=== PATIENT | male | born 1995 | race Asian ===

== ENCOUNTER 2017-02-20 09:16 | Emergency (ER) | payer SELFPAY ==
[~2017-02-20] VITALS: Ht 154.9 cm; Wt 62.3 kg
[2017-02-20 09:20] VITALS: TEMP 37; Ht 154.9 cm; Wt 62.3 kg
[2017-02-20] MEDS ORDERED: ONDANSETRON INJ 2 MG/ML 2 ML VIAL IV STA (09:33)
[2017-02-20] MEDS ORDERED: PIPERACILLIN/TAZOBACTAM 4.5 GM/100ML D5W IV STA (09:33)
[2017-02-20] MEDS ORDERED: MoRPHine SULFATE 4 MG/ML 1 ML CARP\\VIAL IV PRN (09:45)
[2017-02-20 10:00] LABS: BASO % 0.1 %; BASO ABS # 0.02 K/uL (0-0.2); COMPLETE YES; EOS % 0.3 %; HEMATOCRIT 42.7 % (42-52); IG% 0.3 %; LYMPH % 7.9 %; LYMPH ABS # 1.35 K/uL (1.2-3.4); MEAN CELL VOLUME 84.2 fL (80-100); MEAN CORPUSCULAR HEMOGLOBIN 29.8 pg (25-34); MEAN CORPUSCULAR HGB CONC 35.4 g/dl (32-36); MEAN PLATELET VOLUME 10.4 fL (7.4-10.4); MONO % 9.5 %; NEUT % 81.9 %; PLATELET COUNT 262 K/uL (130-400); RED BLOOD COUNT 5.07 M/uL (4.7-6.1); WHITE BLOOD COUNT 17.01 K/uL (4.8-10.8)
--- NOTE | 2017-02-20 10:04 | EMERGENCY ROOM VISIT NOTE ---
History Report prepared by Lauro: Camron Adnersen Under the Supervision of: Dr. Homero Jameson D.O. First contact with patient: 09:25 Chief Complaint: WOUND INFECTION Stated Complaint: RECTAL ABSCESS Nursing Triage Summary: perirectal abcess x1 week, sent by [facility]. History of Present Illness The patient is a 21 year old male who presents to the Emergency Room with complaints of a rectal abscess that began 5 days ago. The day before, he began to have some mild rectal pain, but did not notice the abscess until the day after. His symptoms have worsened significantly since then. He has been experiencing a fever with chills. He denies any abdominal pain. This has never happened to him before. He denies any known medication allergies. He does not take any medications daily. However, he has been taking Ibuprofen for his pain. Source of History: patient Onset: 5 days ago Position: other (Rectal) Symptom Intensity: moderate Quality: sharp Timing: constant Associated Symptoms: + fevers, + chills, No abdominal pain Review of Systems See HPI for pertinent positives & negatives. A total of 10 systems reviewed and were otherwise negative. Past Medical & Surgical Medical Problems: (1) No Known Active Medical Problems Family History Patient reports no known family medical history. Social History Smoking Status: Never Smoker Smokeless Tobacco Use: No Drug Use: none Marital Status: single Occupation Status: student Current/Historical Medications Scheduled Amoxicillin & Pot Clavulanate (Augmentin 875-125 mg), 875 MG PO BID Polyethylene Glycol 3350 (Miralax), 17 GM PO DAILY Allergies Coded Allergies: No Known Allergies (Unverified , 02/22/17) Physical Exam Vital Signs Date Time Temp Pulse Resp B/P (MAP) Pulse Ox O2 Delivery O2 Flow Rate FiO2 02/20/17 11:34 104 18 107/72 95 Room Air 02/20/17 09:20 37.0 126 18 115/75 94 Room Air Physical Exam GENERAL: Patient is awake, alert, and in no acute distress. Patient is uncomfortable and anxious appearing. EYES: The conjunctivae are clear. The pupils are round and reactive. EARS, NOSE, MOUTH AND THROAT: The nose is without any evidence of any deformity. Mucous membranes are moist tongue is midline NECK: The neck is nontender and supple. RESPIRATORY: Normal respiratory effort is noted there is no evidence of wheezing rhonchi or rales CARDIOVASCULAR: Regular rate and rhythm noted there no murmurs rubs or gallops normal S1 normal S2 GASTROINTESTINAL: The abdomen is soft. Bowel sounds are present in all quadrants. Abdomen is nontender. Rectal exam reveled a significant area of fluctuance in the right perianal region. No drainage appreciated. MUSCULOSKELETAL/EXTREMITIES: There is no evidence of gross deformity full range of motion is noted in the hips and shoulders SKIN: There is no obvious evidence of any rash. There are no petechiae, pallor or cyanosis noted. NEUROLOGIC: Patient is awake alert and oriented x3 strength is symmetric patellar reflexes are 2+ bilaterally Medical Decision & Procedures ER Provider Diagnostic Interpretation: Radiology results as stated below per my review and radiologist interpretation: CT PELVIS NO IV/ORAL CONT (CT) CT DOSE: 357.39 mGy.cm CLINICAL HISTORY: Perirectal renal swelling. History of perirectal abscess TECHNIQUE: A dose lowering technique was utilized adhering to the principles of ALARA. COMPARISON STUDY: None. FINDINGS: The examination was performed without the benefit of contrast. There is no pathologic bowel dilatation. There is no pathologic adenopathy. There is a 3.5 cm mass involving the right medial gluteal fold. Given the clinical history, this may represent an abscess. CT appearance is nonspecific. If further evaluation is desired, a contrast-enhanced MRI study would be considered the test of choice for further evaluation. IMPRESSION: 1. 3.5 cm mass involving the right medial gluteal fold. While nonspecific, given the clinical history this may represent a perianal abscess Electronically signed by: Michael Olivera M.D. 02/20/2017 10:19 AM Dictated Date/Time: 02/20/2017 10:15 AM Laboratory Results 02/20/17 09:35 Red Blood Count 5.07, Mean Corpuscular Volume 84.2, Mean Corpuscular Hemoglobin 29.8, Mean Corpuscular Hemoglobin Concent 35.4, Mean Platelet Volume 10.4, Neutrophils (%) (Auto) 81.9, Lymphocytes (%) (Auto) 7.9, Monocytes (%) (Auto) 9.5, Eosinophils (%) (Auto) 0.3, Basophils (%) (Auto) 0.1, Neutrophils # (Auto) 13.92, Lymphocytes # (Auto) 1.35, Monocytes # (Auto) 1.62, Eosinophils # (Auto) 0.05, Basophils # (Auto) 0.02 02/20/17 09:35 Test 02/20/17 09:35 White Blood Count 17.01 K/uL (4.8-10.8) Red Blood Count 5.07 M/uL (4.7-6.1) Hemoglobin 15.1 g/dL (14.0-18.0) Hematocrit 42.7 % (42-52) Mean Corpuscular Volume 84.2 fL (80-100) Mean Corpuscular Hemoglobin 29.8 pg (25-34) Mean Corpuscular Hemoglobin Concent 35.4 g/dl (32-36) Platelet Count 262 K/uL (130-400) Mean Platelet Volume 10.4 fL (7.4-10.4) Neutrophils (%) (Auto) 81.9 % Lymphocytes (%) (Auto) 7.9 % Monocytes (%) (Auto) 9.5 % Eosinophils (%) (Auto) 0.3 % Basophils (%) (Auto) 0.1 % Neutrophils # (Auto) 13.92 K/uL (1.4-6.5) Lymphocytes # (Auto) 1.35 K/uL (1.2-3.4) Monocytes # (Auto) 1.62 K/uL (0.11-0.59) Eosinophils # (Auto) 0.05 K/uL (0-0.5) Basophils # (Auto) 0.02 K/uL (0-0.2) RDW Standard Deviation 35.2 fL (36.4-46.3) RDW Coefficient of Variation 11.5 % (11.5-14.5) Immature Granulocyte % (Auto) 0.3 % Immature Granulocyte # (Auto) 0.05 K/uL (0.00-0.02) Anion Gap 10.0 mmol/L (3-11) Est Creatinine Clear Calc Drug Dose 80.1 ml/min Estimated GFR () 113.6 Estimated GFR (Non- 98.0 BUN/Creatinine Ratio 15.1 (10-20) Calcium Level 9.4 mg/dl (8.5-10.1) Total Bilirubin 1.6 mg/dl (0.2-1) Direct Bilirubin 0.3 mg/dl (0-0.2) Aspartate Amino Transf (AST/SGOT) 9 U/L (15-37) Alanine Aminotransferase (ALT/SGPT) 14 U/L (12-78) Alkaline Phosphatase 75 U/L (45-117) Total Protein 8.6 gm/dl (6.4-8.2) Albumin 4.2 gm/dl (3.4-5.0) Laboratory results per my review. Medications Administered Medications (Trade) Dose Ordered Sig/Jessica Route Start Time Stop Time Status Last Admin Dose Admin Morphine Sulfate (MoRPHine SULFATE INJ) 4 mg Q15M PRN IV 02/20/17 09:45 02/20/17 13:49 DC 02/20/17 09:48 4 MG Ondansetron HCl (Zofran Inj) 4 mg NOW STAT IV 02/20/17 09:33 02/20/17 09:36 DC 02/20/17 09:47 4 MG Piperacillin Sod/ Tazobactam Sod (Zosyn Iv) 4.5 gm NOW STAT IV 02/20/17 09:33 02/20/17 09:36 DC 02/20/17 09:47 4.5 GM Lidocaine/ Epinephrine (Xylocaine/Epine 1% Inj) 20 ml ONE ONCE INFIL 02/20/17 10:45 02/20/17 10:46 DC 02/20/17 10:40 20 ML Procedure Incision & Drainage Indication: Abscess. Location: Perianal Verbal consent was obtained after the risks and benefits were explained, including but not limited to bleeding, scarring, infection, pain, and bone/joint /nerve damage. At this time, the risks of the procedure are less than the risks of NOT performing the procedure. A time out was taken and the correct patient and site identified. The skin was prepped with betadine and a sterile field set. The wound was anesthetized with 3 ml of 1% lidocaine with epinephrine. The abscess cavity was entered with a number 11 blade and copious amounts of purulent material expressed. Copious irrigation was performed using normal saline. The wound was explored for foreign bodies and none found. Debridement was not performed. A drain was placed in the abscess cavity. Packing placed and a sterile dressing applied. Detailed wound care instructions and signs and symptoms of worsening infection reviewed with the patient. No complications and the patient tolerated the procedure well. ED Course 924: The patient was evaluated in room B5. A complete history and physical examination were performed. 0933: Ordered Zosyn Iv 4.5 gm IV, Zofran Inj 4 mg IV 0945: Ordered Morphine Sulfate 4 mg IV 1028: I spoke with Dr. Lyon of Surgery at this time. He will look at the patient 's CT scan and let me know what he thinks. 1045: Ordered Lidocaine/Epinephrine 20 ml INFIL 1100: Dr. Lyon agrees with our plan to I&D the patient's abscess in the ER. He will gladly follow up with the patient. 1104: I performed an I&D procedure at this time. Please see the procedure note for more information. 1150: Upon reevaluation, the patient is resting. I discussed the results and treatment plan with him. He verbalized agreement of the treatment plan. He was discharged home. Medical Decision Differential diagnosis: Etiologies such as cellulitis, abscess, MRSA infection, DVT, necrotizing fasciitis, dermatitis, drug eruption, as well as others were entertained.. Nursing notes reviewed. The patient is a 21-year-old male who presented to the emergency department for an evaluation of swelling and tenderness around his buttocks. The patient was found have a significant area of fluctuance in his right perianal region. Radiographic studies did reveal a significant perianal fluid collection. I discussed this case with the on-call general surgeon. I have arranged follow-up appointment with the general surgeon but at this time I feel the patient's abscess can be treated with incision and drainage noun the emergency department by myself. Cultures were obtained. The patient was treated with IV pain medication IV antibiotic. A drain was placed. The patient was reevaluated multiple times. On subsequent reevaluation he was feeling much better. He was encouraged to return in 48 hours for packing removal. He was also encouraged to return sooner if he develops signs of fever severe pain or any other worrisome symptoms. He was also encouraged to follow-up with the general surgeon next week for reevaluation. I stressed to him that even if he was feeling better he should follow-up with the general surgeon. The patient agreed to this plan. Medication Reconcilliation Current Medication List: was personally reviewed by me Blood Pressure Screening Patient's blood pressure: Normal blood pressure Blood pressure disposition: Did not require urgent referral Consults Time Called: 1025 Consulting Physician: Dr. Lyon - Surgery Returned Call: 1021 We discussed the patient's case. He will look at the patient's CT scan and let me know what he thinks. Additional Consults: Time Called: 1100 Consulted Physician: Dr. Lyon - Surgery Returned Call: 1100 Additional Comments: He agrees with the plan to I&D the patient's abscess in the ER. He will gladly follow up with the patient in the future. Impression Primary Impression: Perianal abscess Scribe Attestation The scribe's documentation has been prepared under my direction and personally reviewed by me in its entirety. I confirm that the note above accurately reflects all work, treatment, procedures, and medical decision making performed by me. Departure Information Dispostion Home / Self-Care Prescriptions Polyethylene Glycol 3350 (MIRALAX) 1 Pow Pow 17 GM PO DAILY, #527 GM Prov: Homero Jameson, DO 02/20/17 Amoxicillin & Pot Clavulanate (Augmentin 875-125 mg) 1 Tab Tab 875 MG PO BID for 7 Days, #14 TAB Prov: Homero Jameson, DO 02/20/17 Referrals Keagan Lyon M.D. [facility] [address] Forms HOME CARE DOCUMENTATION FORM, IMPORTANT VISIT INFORMATION, WORK / SCHOOL INSTRUCTIONS Patient Instructions My [facility], Perianal Abscess Additional Instructions Call the surgeon to schedule a follow-up appointment for next week. Return to the emergency department tomorrow for wound check and for packing removal. Continue all medications as prescribed.
[2017-02-20 10:09] LABS: BUN/CREATININE RATIO 15.1 (10-20); CALCIUM 9.4 mg/dl (8.5-10.1); CREATININE 1.07 mg/dl (0.60-1.40); POTASSIUM 3.8 mmol/L (3.5-5.1)
--- NOTE | 2017-02-20 10:20 | DIAGNOSTIC IMAGING REPORT ---
CT PELVIS NO IV/ORAL CONT (CT) CT DOSE: 357.39 mGy.cm CLINICAL HISTORY: Perirectal renal swelling. History of perirectal abscess TECHNIQUE: A dose lowering technique was utilized adhering to the principles of ALARA. COMPARISON STUDY: None. FINDINGS: The examination was performed without the benefit of contrast. There is no pathologic bowel dilatation. There is no pathologic adenopathy. There is a 3.5 cm mass involving the right medial gluteal fold. Given the clinical history, this may represent an abscess. CT appearance is nonspecific. If further evaluation is desired, a contrast-enhanced MRI study would be considered the test of choice for further evaluation. IMPRESSION: 1. 3.5 cm mass involving the right medial gluteal fold. While nonspecific, given the clinical history this may represent a perianal abscess Electronically signed by: Michael Olivera M.D. 02/20/2017 10:19 AM Dictated Date/Time: 02/20/2017 10:15 AM
[2017-02-20] MEDS ORDERED: LIDOCAINE/EPINEPHRINE 1% 20 ML VIAL INFIL ONE (10:45)
[2017-02-20 11:34] VITALS: BP 107/72; PULSE 104; O2SAT 95
[2017-02-20] MEDS ORDERED: POLY335019 PO (11:44)
[2017-02-20] MEDS ORDERED: OXYC1TAB3 PO (11:44)
[2017-02-20] MEDS ORDERED: AMOX875T PO (11:44)
== END 2017-02-20 12:11 | disposition home or self-care (01) ==
LOC: C.EDB 09:20
DX: K61.0 Anal abscess (principal)

== ENCOUNTER 2017-02-22 11:44 | Emergency (ER) | payer OTHER ==
[~2017-02-22 11:44] MED LIST: AMOX875T PO; OXYC1TAB3 PO; POLY335019 PO
[2017-02-22 11:54] VITALS: BP 111/75; TEMP 37
--- NOTE | 2017-02-22 13:19 | EMERGENCY ROOM VISIT NOTE ---
ED Visit Note First contact with patient: 12:40 Chief Complaint: Packing Removal History of Present Illness: This patient is a 21 year old male who presents to the Emergency Department, ambulatory, for packing removal of a right buttock, perianal abscess. The patient reports that the wound has improved since last visit. Patient states that they have been following the discharge instructions completely. Patient rates his current discomfort as a 2/ 10. They report this is significantly improved since previous exam. They report no purulent drainage. Patient denies any development of any fevers, chills, sweats, streaking, discharge, or foul odor. Medications: None Allergies: None PMH: None SHx: The patient lives locally. He is a [employer] student. He denies drug, alcohol, tobacco use. ROS: All pertinent positive and negative review of systems are appropriately documented in the History of Present Illness. Physical Exam: VITAL SIGNS - Vital signs and Nursing Notes were reviewed. GENERAL -this is a 21-year-old male, well-developed, well-nourished, and in no acute distress. SKIN -. There is packing in place in the right buttock. There is a small amount of purulent drainage noted on the bandage overlying the packing. There is no active drainage from the wound at this time. There is no bleeding. There is no erythema surrounding the lesion or wound. NEURO - Patient is A&Ox3 and communicates appropriately with the provider. ED Course: Previous ED visit note was reviewed by myself prior to patient evaluation. The wound was assessed as describe above. Patient states that the wound has improved since previous visit. Compared to description in previous ED visit note , the wound has significantly improved. Packing was removed from the right buttock and a very small amount of purulent drainage was expressed from the wound. After further discussion with the patient, I am comfortable discharging the patient to home for completion of the treatment plan outlined in previous ED discharge summary. Discharge instructions, including worrisome symptoms for return visit to the Emergency Department were discussed with the patient who acknowledges understanding. Patient was discharged to home afebrile and in good condition. I attest that I have personally reviewed the patient's current medication list. Patient was found to have normal blood pressure on screening and does not require follow-up. DIFFERENTIAL DIAGNOSIS: Abscess, cellulitis, sepsis, open wound, and others Impression: Packing Removal - well healing Current/Historical Medications Scheduled Amoxicillin & Pot Clavulanate (Augmentin 875-125 mg), 875 MG PO BID Polyethylene Glycol 3350 (Miralax), 17 GM PO DAILY Allergies Coded Allergies: No Known Allergies (Unverified , 02/22/17) Vital Signs Date Time Temp Pulse Resp B/P (MAP) Pulse Ox O2 Delivery O2 Flow Rate FiO2 02/22/17 13:24 104 16 94 02/22/17 11:54 37.0 89 18 111/75 95 Room Air Departure Information Impression Primary Impression: Abscess of right buttock Additional Impression: Abscess packing removal Dispostion Home / Self-Care Condition GOOD Referrals [facility] (PCP) Patient Instructions ED Sharifa Anal Abscess Kay [facility] Additional Instructions You were seen in the Emergency Department today for a Wound Recheck/packing removal. You should continue to follow the Discharge Instructions outlined for you in your previous Emergency Department visit. Continue to look for signs of infection of the wound including: increased pain, swelling, foul discharge, streaking, or increased temperature. If any of these are noticed you should return to the Emergency Department for further assessment and treatment. Keep the wound covered with a small amount of antibiotic ointment and bandage. You should change this bandage at least once per day, or anytime it becomes saturated or gets wet. As the wound continues to heal, and drainage is less, you may start leaving the wound open to air. Cover it if it may get dirty. Please keep the area clean and dry. Ibuprofen(Motrin, Advil) may be used for fever or pain. Use 600mg every six hours as needed. Take with food. Avoid using more than 2400mg in a 24 hour period. Do not use 2400mg per day for more than three consecutive days without physician direction. Prolonged inappropriate use can lead to stomach upset or ulcers. (AND/OR) Acetaminophen(Tylenol) may be used for fever or pain. Use 1000mg every six hours as needed. Avoid using more than 3000mg in a 24 hour period. Return to the emergency department if your symptoms worsen despite treatment course outlined above. Problem Qualifiers
[2017-02-22 13:24] VITALS: PULSE 104; O2SAT 94
== END 2017-02-22 13:20 | disposition home or self-care (01) ==
LOC: C.EDB 11:45 → C.EDD 13:20
DX: L02.31 Cutaneous abscess of buttock (principal); Z48.00 Encounter for change or removal of nonsurgical wound dressing